=== PATIENT | female | born 1970 ===

== ENCOUNTER 2017-07-27 12:11 | Outpatient (CLI) | payer BC ==
--- NOTE | 2017-07-27 14:00 | Mammography Report ---
Bilateral mammogram: No previous studies available. CAD study utilized. Findings: Scattered glandular parenchyma bilaterally. Focal 5 mm circumscribed density is upper mid right breast 3 in number. 3 mm circumscribed density lower mid right breast. Focal asymmetry posterior mid right breast. Circumscribed 3 mm focal asymmetry outer posterior left breast. Normal axilla. No microcalcifications. Impression: Focal asymmetry site the left breast. Recommend comparison with previous studies. If previous studies are not available this aren't made and if necessary sonographic examination. BI-RADS CATEGORY: 0 = Needs additional imaging evaluation ACR BI-RADS MAMMOGRAPHIC CODES: 0 = Needs additional imaging evaluation; 1 = Negative; 2 = Benign; 3 = Probably benign; 4 = Suspicious; 5 = Malignant; 6 = Known biopsy-proven malignancy COMMENT: 1. Dense breast tissue, i.e., adenosis, fibrocystic changes, etc., may obscure an underlying neoplasm. 2. Approximately 10% of cancers are not detected with mammography. 3. A negative mammography report should not delay biopsy if a clinically suspicious mass is present. COMMENT: Patient follow-up letters are generated in [employer]..
== END 2017-07-27 12:12 | disposition home or self-care (01) ==
LOC: SPVWC 12:11
PROVIDERS: ATTEND Family Medicine
DX: Z12.31 Encounter for screening mammogram for malignant neoplasm of breast (principal)
CPT/HCPCS: 77067